=== PATIENT | female | born 1995 | race African-American/Black ===

== ENCOUNTER 2016-02-29 08:34 | Emergency (ER) | payer OTHER ==
[2016-02-29 08:51] VITALS: BP 142/78; PULSE 100; TEMP 98; BMI 25.8
--- NOTE | 2016-02-29 09:06 | PDOC ---
History of Present Illness - General Chief Complaint: Allergic Reaction Stated Complaint: ALLERGIC REACTION Time Seen by Provider: 02/29/16 08:52 History Source: Patient - History of Present Illness Timing/Duration: reports: constant Past History - Past Medical History Allergies/Adverse Reactions: Allergies Allergy/AdvReac Type Severity Reaction Status Date / Time No Known Allergies Allergy Verified 02/29/16 08:38 Home Medications: Ambulatory Orders Fluconazole 150 mg PO ONCE #1 tablet 02/29/16 - Psycho/Social/Smoking Cessation Hx Suicidal Ideation: No Smoking History: Never smoked Information on smoking cessation initiated: No Review of Systems - Review of Systems Constitutional: No: Chills, Fever : Yes: Other (labial swelling). No: Burning, Dysuria, Discharge *Physical Exam - Vital Signs Last Vital Signs Temp Pulse Resp BP Pulse Ox 98 F 100 H 18 142/78 99 02/29/16 08:35 02/29/16 08:35 02/29/16 08:35 02/29/16 08:35 02/29/16 08:35 - Physical Exam General Appearance: Yes: Appropriately Dressed. No: Apparent Distress HEENT: positive: Normal Voice Neck: positive: Supple Respiratory/Chest: negative: Respiratory Distress Female Pelvic Exam: positive: normal external exam, discharge (significant light yellow thick discharge visualized at intraoitis, no labial swelling/ lesions) Gastrointestinal/Abdominal: positive: Soft. negative: Tender Integumentary: positive: Dry, Warm Neurologic: positive: Fully Oriented, Alert, Normal Mood/Affect Medical Decision Making - Medical Decision Making 02/29/16 09:04 20 yo F, denies any pmhx and never been sexually active as per pt, presents with swelling to external genitalia. Patient states shortly after using a new detergent to wash her clothes, including underwear, over the weekend, she noticed vaginal itching earlier yesterday and since then has noticed swelling of her external labia. Denies pain, vaginal discharge or vaginal lesions. 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
== END 2016-02-29 09:21 | disposition home or self-care (01) ==
LOC: JERFT 08:34 → JER 08:34 → JERFT 09:21
DX: B37.3 Candidiasis of vulva and vagina (principal)
CPT/HCPCS: 36415; 87070; 87077; 87205; 87491; 87591; 99281-25